=== PATIENT | male | born 1955 | race Caucasian/White ===

== ENCOUNTER 2019-08-13 01:53 | Observation (INO) | payer OTHER ==
[~2019-08-13] VITALS: Ht 190.5 cm; Wt 90.0 kg
[~2019-08-13 01:53] MED LIST: APIX5TAB PO; ATOR-2 PO; ESCI20TA PO; LORA0.5T PO; METO25TA4 PO; MIRT30TA PO; TRA100 PO
[2019-08-13 04:20] VITALS: Ht 190.5 cm; Wt 90.0 kg
[2019-08-13] MEDS ORDERED: NITROGLYCERIN (SL) 0.4 MG TAB SL PRN (05:30)
[2019-08-13] MEDS ORDERED: LORAZEPAM 2 MG INJ IV PRN (05:30)
[2019-08-13] MEDS ORDERED: LORAZEPAM 0.5 MG TAB PO PRN (05:30)
[2019-08-13] MEDS ORDERED: morphine 2 MG INJ IV PRN (05:30)
[2019-08-13] MEDS ORDERED: ACETAMINOPHEN 325 MG TAB PO PRN (05:30)
[2019-08-13] MEDS ORDERED: ONDANSETRON 4 MG INJ IV PRN (05:30)
[2019-08-13] MEDS ORDERED: NACL 0.9% 3 ML SYG IV SCH (05:30)
[2019-08-13] MEDS: SOD CHLORIDE 0.9% 1,000 ML IV SCH ×2 (06:34→15:02)
[2019-08-13 06:50] VITALS: BP 103/66; PULSE 75; RESP 18
[2019-08-13 07:17] VITALS: BP_SYST 99; BP_DIAS 5; BP_DIAS 56; PULSE 70; RESP 16
[2019-08-13] MEDS ORDERED: traZODone 100 MG TAB PO SCH (09:00)
[2019-08-13] MEDS ORDERED: MIRTAZAPINE 15 MG TAB PO SCH (09:00)
[2019-08-13] MEDS ORDERED: FAMOTIDINE 20 MG TAB PO SCH (09:00)
[2019-08-13] MEDS ORDERED: ASPIRIN 81 MG TAB PO SCH (09:00)
[2019-08-13] MEDS ORDERED: ESCITALOPRAM 10 MG TAB PO SCH (09:00)
[2019-08-13] MEDS ORDERED: METOPROLOL 25 MG TAB PO SCH (09:00)
[2019-08-13] MEDS ORDERED: ENOXAPARIN 40 MG/0.4 ML SYG SC SCH (09:00)
[2019-08-13] MEDS ORDERED: REGADENOSON 0.4 MG/5 ML SYG ONE (10:24)
[2019-08-13] MEDS: APIXABAN 5 MG TABLET PO SCH ×2 (11:33→18:37)
[2019-08-13 11:34] VITALS: BP 125/75; PULSE 82; RESP 16
[2019-08-13 15:51] VITALS: BP 107/60; RESP 16
[2019-08-13] MEDS ORDERED: ATORVASTATIN 80 MG TAB PO SCH (21:00)
== END 2019-08-13 19:06 | disposition home or self-care (01) ==
LOC: UNDOADMIN 03:57 → 6WM 03:57 → INTOOBSV 05:10
PROVIDERS: ADMIT Internal Medicine; ATTEND Internal Medicine
DX: R07.89 Other chest pain (principal); I48.2 Chronic atrial fibrillation; F32.9 Major depressive disorder, single episode, unspecified; I10 Essential (primary) hypertension; E78.5 Hyperlipidemia, unspecified; G89.29 Other chronic pain; M54.9 Dorsalgia, unspecified; Z79.01 Long term (current) use of anticoagulants
CPT/HCPCS: 78452; 80053; 80061; 82550; 82553; 83036; 83735; 84439; 84443; 84484; 85025; 93017; 96361; 96372; 96374; A9500; A9505; G0378; J1650; J2270; J2785; J7030